=== PATIENT | female | born 1985 | race Two or more races ===

== ENCOUNTER 2020-11-12 17:28 | Outpatient (CLI) | payer BC ==
[~2020-11-12] VITALS: Ht 170.2 cm; Wt 179.2 kg
== END 2020-11-12 20:32 | disposition home or self-care (01) ==
LOC: LDOP 17:28
PROVIDERS: ATTEND Obstetrics & Gynecology Maternal & Fetal Medicine
DX: O26.893 Other specified pregnancy related conditions, third trimester (principal); E66.01 Morbid (severe) obesity due to excess calories; I10 Essential (primary) hypertension; Z3A.33 33 weeks gestation of pregnancy
CPT/HCPCS: 59025

== ENCOUNTER 2020-11-29 14:00 | Outpatient (CLI) | payer BC ==
[~2020-11-29] VITALS: Ht 170.2 cm; Wt 179.5 kg
[2020-11-29 14:39] VITALS: BP 139/67
[2020-11-29] MEDS ORDERED: PREN1TAB10 PO (16:04)
[2020-11-29] MEDS ORDERED: LABE200T6 PO (16:04)
[2020-11-29] MEDS ORDERED: ASPI-963 PO (16:04)
== END 2020-11-29 16:20 | disposition home or self-care (01) ==
LOC: LDOP 14:00
PROVIDERS: ATTEND Obstetrics & Gynecology Maternal & Fetal Medicine
DX: O36.8130 Decreased fetal movements, third trimester, not applicable or unspecified (principal); Z3A.35 35 weeks gestation of pregnancy
CPT/HCPCS: 59025; 76819

== ENCOUNTER 2020-12-18 09:58 | Inpatient (IN) | payer BC ==
[~2020-12-18] VITALS: Ht 170.2 cm; Wt 176.0 kg
[~2020-12-18 09:58] MED LIST: ASPI-963 PO; LABE200T6 PO; PREN1TAB10 PO
[2020-12-18] MEDS ORDERED: TERBUTALINE 1 MG/ML, 1ML IVPush PRN (17:30)
[2020-12-18] MEDS ORDERED: METOCLOPRAMIDE 5 MG/ML, 2ML IVPush PRN (17:30)
[2020-12-18] MEDS ORDERED: OXYTOCIN 30U/ 0.9% NaCL 500ML 500 ML IV ONE (17:30)
[2020-12-18] MEDS ORDERED: FENTANYL PF 100 MCG/2ML IVPush PRN (17:30)
[2020-12-18] MEDS ORDERED: ALUMINUM/MAG/SIMETHICONE 30 ML UDC PO PRN (17:30)
[2020-12-18] MEDS ORDERED: CALCIUM CARBONATE 500 MG TAB.CHEW PO PRN (17:30)
[2020-12-18] MEDS ORDERED: PLEASE ENTER HEIGHT AND WEIGHT MC SCH ×2 (17:30→18:30)
[2020-12-18] MEDS ORDERED: TERBUTALINE 1 MG/ML, 1ML SQ PRN (17:30)
[2020-12-18] MEDS ORDERED: ONDANSETRON 2MG/ML, 2ML IVPush PRN (17:30)
[2020-12-18] MEDS ORDERED: FENTANYL PF 100 MCG/2ML IV PRN (17:30)
[2020-12-18] MEDS ORDERED: D5%-LACTATED RINGERS 1,000 ML IV SCH (17:30)
[2020-12-18] MEDS ORDERED: LACTATED RINGERS 1,000 ML IV SCH (17:30)
[2020-12-18] MEDS ORDERED: SODIUM CITRATE/CITRIC ACID 30 ML UDC PO PRN (17:30)
[2020-12-18] MEDS ORDERED: SODIUM CHLORIDE FLUSH 10ML SYR IVF PRN (17:30)
[2020-12-18] MEDS ORDERED: MISOPROSTOL 25 MCG TABLET VG PRN (17:30)
[2020-12-18] MEDS ORDERED: OXYTOCIN 30U/ 0.9% NaCL 500ML 500 ML IV PRN (17:30)
[2020-12-18 17:32] LABS: BASOPHILS % (AUTO) 1 % (0-1); EOSINOPHILS % (AUTO) 1 % (1-7); LYMPHOCYTES % (AUTO) 18 % (22-44); MEAN CORPUSCULAR HEMOGLOBIN 29.4 pg (27.0-34.8); MEAN CORPUSCULAR HGB CONC 33.9 g/dL (32.4-35.8); MEAN PLATELET VOLUME 10.1 fL (7.4-10.4); MONOCYTES % (AUTO) 4 % (2-9); NEUTROPHILS % (AUTO) 76 % (42-75); PLATELET COUNT 268 x10^3/uL (130-400); RED BLOOD COUNT 4.06 x10^6/uL (3.82-5.3); RED CELL DISTRIBUTION WIDTH 14.3 % (9.6-15.2)
[2020-12-18] MEDS ORDERED: LIDOCAINE 1%, 20ML ONE (18:14)
[2020-12-18] MEDS ORDERED: MISOPROSTOL 200 MCG TABLET ONE (18:14)
[2020-12-18] MEDS ORDERED: NEWBORN KIT ONE (18:14)
[2020-12-18 19:30] VITALS: BP 141/76
[2020-12-18] MEDS: LABETALOL 200 MG TABLET HOMEMEDPO SCH (20:00)
[2020-12-19] MEDS: LABETALOL 200 MG TABLET HOMEMEDPO SCH (07:30)
[2020-12-19] MEDS ORDERED: hydrALAzine 20 MG/ML, 1ML ONE ×2 (07:49→21:35)
[2020-12-19] MEDS ORDERED: hydrALAzine 20 MG/ML, 1ML IV ONE (08:00)
[2020-12-19] MEDS ORDERED: LABETALOL 5MG/ML, 20ML IVPush ONE (09:00)
[2020-12-19] MEDS ORDERED: hydrALAzine 20 MG/ML, 1ML IVPush ONE ×3 (09:00→22:00)
[2020-12-19] MEDS ORDERED: FENTANYL/BUPIV./NS/PF 250 ML EPIDCONT ONE (10:43)
[2020-12-19] MEDS ORDERED: BUPIVACAINE 0.25% ONE (10:43)
[2020-12-19] MEDS ORDERED: FENTANYL/BUPIV./NS/PF 250 ML EPIDCONT SCH (11:30)
[2020-12-19] MEDS ORDERED: NALOXONE 0.4 MG/ML, 1ML IVPush PRN (11:30)
[2020-12-19] MEDS ORDERED: ONDANSETRON 2MG/ML, 2ML IVPush PRN (11:30)
[2020-12-19] MEDS ORDERED: DIPHENHYDRAMINE 50 MG/ML, 1ML IVPush PRN (11:30)
[2020-12-19] MEDS ORDERED: LACTATED RINGERS 1,000 ML IV SCH (11:30)
[2020-12-19] MEDS ORDERED: EPHEDRINE 50 MG/ML, 1ML IVPush PRN (11:30)
[2020-12-19] MEDS ORDERED: LACTATED RINGERS 1,000 ML IVBOLUS PRN (11:30)
[2020-12-19] MEDS ORDERED: AMPICILLIN 1 GM in SODIUM CHLORIDE 0.9% 100 ML IV ONE (23:00)
[2020-12-19] MEDS ORDERED: PHARMACOKINETIC MONITORING MC PRN (23:00)
[2020-12-19] MEDS ORDERED: GENTAMICIN IV ONE (23:00)
[2020-12-19] MEDS ORDERED: PHARMACOKINETIC CONSULTATION MC ONE (23:00)
[2020-12-19] MEDS ORDERED: SODIUM CHLORIDE 0.9% IV ONE (23:00)
[2020-12-19] MEDS ORDERED: AMPICILLIN 2 GM in SODIUM CHLORIDE 0.9% 100 ML IV ONE (23:00)
[2020-12-19] MEDS ORDERED: GENTAMICIN PER PHARMACY MC PRN (23:00)
[2020-12-19] MEDS ORDERED: LABETALOL 5MG/ML, 20ML ONE (23:09)
[2020-12-19] MEDS ORDERED: SODIUM CITRATE/CITRIC ACID 15 ML UDC ONE (23:09)
[2020-12-19] MEDS ORDERED: LABETALOL 5MG/ML, 20ML IVPush PRN ×2 (23:30)
[2020-12-19] MEDS ORDERED: FENTANYL PF 100 MCG/2ML ONE (23:59)
[2020-12-20 00:12] LABS: CREATININE 0.65 mg/dL (0.55-1.02)
[2020-12-20] MEDS ORDERED: OXYTOCIN 10 UNITS/ML, 1ML ONE ×4 (00:16)
[2020-12-20] MEDS ORDERED: CEFAZOLIN 1,000 MG ONE ×3 (00:16)
[2020-12-20] MEDS ORDERED: KETOROLAC 30 MG/1 ML ONE (00:46)
[2020-12-20] MEDS ORDERED: MIDAZOLAM 1 MG/ML, 2ML ONE (00:47)
[2020-12-20] MEDS ORDERED: OXYcodone 5 MG/5 ML ORAL.SOL UDC PO PRN (01:30)
[2020-12-20] MEDS ORDERED: morphine SULFATE 10 MG/ML, 1ML IM PRN (01:30)
[2020-12-20] MEDS ORDERED: MISOPROSTOL 200 MCG TABLET PR PRN (01:30)
[2020-12-20] MEDS ORDERED: LABETALOL 5MG/ML, 20ML IV PRN (01:30)
[2020-12-20] MEDS ORDERED: ACETAMINOPHEN 325 MG TABLET PO PRN ×3 (01:30)
[2020-12-20] MEDS ORDERED: DIPHENHYDRAMINE 50 MG/ML, 1ML IVPush PRN (01:30)
[2020-12-20] MEDS: OXYTOCIN 30U/ 0.9% NaCL 500ML 500 ML IV SCH ×2 (01:30→11:30)
[2020-12-20] MEDS ORDERED: FENTANYL PF 100 MCG/2ML IV PRN (01:30)
[2020-12-20] MEDS ORDERED: CARBOPROST TROMETHAMINE 250 MCG/ML, 1ML IM PRN (01:30)
[2020-12-20] MEDS ORDERED: MEPERIDINE/PF 25MG/0.5ML IVPush PRN (01:30)
[2020-12-20] MEDS ORDERED: ONDANSETRON 2MG/ML, 2ML IVPush PRN (01:30)
[2020-12-20] MEDS ORDERED: SIMETHICONE 80 MG CHEW TAB PO PRN (01:30)
[2020-12-20] MEDS ORDERED: EPHEDRINE 50 MG/ML, 1ML IVPush PRN (01:30)
[2020-12-20] MEDS ORDERED: morphine SULFATE 10 MG/ML, 1ML IVPush PRN (01:30)
[2020-12-20] MEDS ORDERED: ONDANSETRON 2MG/ML, 2ML IV PRN (01:30)
[2020-12-20] MEDS ORDERED: DIPH,PERTUSS(ACELL),TET VAC/PF NC IM-VACC PRN (01:30)
[2020-12-20] MEDS ORDERED: LACTATED RINGERS 1,000 ML IV SCH (01:30)
[2020-12-20] MEDS: LACTATED RINGERS 1,000 ML IV SCH ×3 (04:00→12:41)
[2020-12-20] MEDS: OXYcodone/APAP 5/325MG TABLET PO PRN ×4 (04:15→18:23)
[2020-12-20] MEDS: ASPIRIN 81 MG TABLET EC HOMEMEDPO SCH ×2 (06:00→20:00)
[2020-12-20 07:30] VITALS: BP 148/76
[2020-12-20] MEDS: KETOROLAC 30 MG/1 ML IV SCH ×4 (07:30→20:37)
[2020-12-20] MEDS: PRENATAL VIT/IRON/FA 1 EACH TABLET HOMEMEDPO SCH ×2 (07:55→09:00)
[2020-12-20] MEDS ORDERED: GENTAMICIN 160 MG in SODIUM CHLORIDE 0.9% 50 ML IV SCH (08:00)
[2020-12-20 08:50] LABS: MEAN CORPUSCULAR HEMOGLOBIN 29.3 pg (27.0-34.8); MEAN CORPUSCULAR HGB CONC 33.7 g/dL (32.4-35.8); MEAN PLATELET VOLUME 10.2 fL (7.4-10.4); PLATELET COUNT 197 x10^3/uL (130-400); RED CELL DISTRIBUTION WIDTH 14.2 % (9.6-15.2)
[2020-12-20] MEDS: PRENATAL VIT/IRON/FA 1 EACH TABLET PO SCH (09:00)
[2020-12-20] MEDS: LABETALOL 100 MG TABLET PO SCH ×2 (09:19→18:22)
[2020-12-20] MEDS: DOCUSATE 100 MG CAPSULE PO PRN ×2 (09:19→20:37)
[2020-12-20 09:52] LABS: <PLATELET ESTIMATE> ADEQUATE; <PLT MORPHOLOGY> NORMAL PLT MORPH; ANISOCYTOSIS 1+; BAND#(MANUAL) 2.67 x10^3/uL; BANDS%(MANUAL) 11 % (0-7); LYMPH#(MANUAL) 2.92 x10^3/uL (1-3.4); LYMPHS% (MANUAL) 12 % (22-44); MONOS#(MANUAL) 0.49 x10^3/uL (0.3-2.7); MONOS% (MANUAL) 2 % (2-9); POLYCHROMASIA 1+; SEG#(MANUAL) 18.23 x10^3/uL (1.8-6.8); SEGS% (MANUAL) 75 % (42-75)
[2020-12-20 12:00] VITALS: BP 125/68
[2020-12-20 16:45] VITALS: BP 107/71
[2020-12-20 20:00] VITALS: BP 131/79
[2020-12-21 00:15] VITALS: BP 146/81
[2020-12-21] MEDS: KETOROLAC 30 MG/1 ML IV SCH ×4 (02:36→21:12)
[2020-12-21] MEDS: OXYcodone/APAP 5/325MG TABLET PO PRN ×4 (02:37→21:41)
[2020-12-21 04:00] VITALS: BP 145/85
[2020-12-21] MEDS: ASPIRIN 81 MG TABLET EC HOMEMEDPO SCH ×2 (05:46→07:00)
[2020-12-21] MEDS: LACTATED RINGERS 1,000 ML IV SCH ×2 (07:30→17:30)
[2020-12-21] MEDS: LABETALOL 100 MG TABLET PO SCH ×2 (08:18→18:16)
[2020-12-21] MEDS: DOCUSATE 100 MG CAPSULE PO PRN ×2 (08:18→21:12)
[2020-12-21] MEDS: PRENATAL VIT/IRON/FA 1 EACH TABLET HOMEMEDPO SCH (08:18)
[2020-12-21 08:30] VITALS: BP 143/77
[2020-12-22] MEDS: LACTATED RINGERS 1,000 ML IV SCH ×2 (03:30→13:30)
[2020-12-22] MEDS: IBUPROFEN 600 MG TABLET PO PRN ×2 (05:08→11:22)
[2020-12-22] MEDS: OXYcodone/APAP 5/325MG TABLET PO PRN ×3 (05:10→17:19)
[2020-12-22] MEDS: ASPIRIN 81 MG TABLET EC HOMEMEDPO SCH (06:00)
[2020-12-22] MEDS: LABETALOL 100 MG TABLET PO SCH (07:16)
[2020-12-22] MEDS: PRENATAL VIT/IRON/FA 1 EACH TABLET PO SCH ×2 (07:16→09:00)
[2020-12-22] MEDS: DOCUSATE 100 MG CAPSULE PO PRN (07:17)
[2020-12-22 07:30] VITALS: BP 174/100
[2020-12-22] MEDS: PRENATAL VIT/IRON/FA 1 EACH TABLET HOMEMEDPO SCH (07:37)
[2020-12-22 09:00] VITALS: BP_SYST 147; BP_SYST 162; BP_DIAS 81; BP_DIAS 95
[2020-12-22] MEDS ORDERED: LABETALOL 200 MG TABLET PO ONE (09:00)
[2020-12-22 12:15] VITALS: BP 177/109
[2020-12-22 12:44] LABS: BASOPHILS % (AUTO) 1 % (0-1); EOSINOPHILS % (AUTO) 1 % (1-7); LYMPHOCYTES % (AUTO) 18 % (22-44); MEAN CORPUSCULAR HEMOGLOBIN 29.6 pg (27.0-34.8); MEAN PLATELET VOLUME 10.1 fL (7.4-10.4); MONOCYTES % (AUTO) 4 % (2-9); NEUTROPHILS % (AUTO) 77 % (42-75); PLATELET COUNT 220 x10^3/uL (130-400); RED BLOOD COUNT 3.32 x10^6/uL (3.82-5.3); RED CELL DISTRIBUTION WIDTH 14.8 % (9.6-15.2)
[2020-12-22 12:49] LABS: ALANINE AMINOTRANSFERASE 30 U/L (12-78); ALBUMIN 2.3 g/dL (3.4-5.0); ANION GAP 8 mmol/L (5-15); CALCIUM 8.6 mg/dL (8.5-10.1); CHLORIDE 112 mmol/L (98-107); CREATININE 0.61 mg/dL (0.55-1.02)
[2020-12-22 12:52] LABS: ALKALINE PHOSPHATASE 73 U/L (45-117); BILIRUBIN,TOTAL 0.3 mg/dL (0.2-1.0); TOTAL PROTEIN 6.4 g/dL (6.4-8.2)
[2020-12-22 13:09] LABS: BILIRUBIN, DIRECT < 0.1 mg/dL (0.1-0.2)
[2020-12-22 13:28] VITALS: BP 167/84
[2020-12-22 16:20] VITALS: BP 184/94
[2020-12-22] MEDS: LABETALOL 300 MG TABLET PO SCH (16:30)
[2020-12-22] MEDS ORDERED: MAGNESIUM SULFATE PMX 4GM/100M 100 ML IVPB ONE (17:00)
[2020-12-22] MEDS: LACTATED RINGERS 1,000 ML IV PRN (17:10)
[2020-12-22] MEDS: MAGNESIUM SULF. PMX 20GM/500ML 500 ML IV SCH ×2 (17:25→17:50)
[2020-12-22] MEDS ORDERED: hydrALAzine 20 MG/ML, 1ML IVPush ONE ×3 (22:00)
[2020-12-22] MEDS ORDERED: LABETALOL 5MG/ML, 20ML IVPush ONE (22:00)
[2020-12-22] MEDS ORDERED: hydrALAzine 20 MG/ML, 1ML ONE (22:04)
[2020-12-23 00:27] LABS: BASOPHILS % (AUTO) 1 % (0-1); EOSINOPHILS % (AUTO) 1 % (1-7); LYMPHOCYTES % (AUTO) 16 % (22-44); MEAN CORPUSCULAR HEMOGLOBIN 29.4 pg (27.0-34.8); MEAN CORPUSCULAR HGB CONC 33.6 g/dL (32.4-35.8); MEAN PLATELET VOLUME 9.6 fL (7.4-10.4); MONOCYTES % (AUTO) 4 % (2-9); NEUTROPHILS % (AUTO) 78 % (42-75); PLATELET COUNT 282 x10^3/uL (130-400); RED BLOOD COUNT 3.73 x10^6/uL (3.82-5.3); RED CELL DISTRIBUTION WIDTH 14.5 % (9.6-15.2)
[2020-12-23 00:54] LABS: ALBUMIN 2.4 g/dL (3.4-5.0); ANION GAP 7 mmol/L (5-15); CALCIUM 8.5 mg/dL (8.5-10.1); CHLORIDE 112 mmol/L (98-107)
[2020-12-23 00:59] LABS: ALANINE AMINOTRANSFERASE 35 U/L (12-78); ALKALINE PHOSPHATASE 80 U/L (45-117); BILIRUBIN,TOTAL 0.3 mg/dL (0.2-1.0); CREATININE 0.62 mg/dL (0.55-1.02)
[2020-12-23 01:12] LABS: BILIRUBIN, DIRECT < 0.1 mg/dL (0.1-0.2)
[2020-12-23] MEDS: MAGNESIUM SULF. PMX 20GM/500ML 500 ML IV SCH ×3 (02:14→19:32)
[2020-12-23] MEDS ORDERED: LABETALOL 5MG/ML, 20ML IVPush PRN ×3 (03:30)
[2020-12-23] MEDS ORDERED: hydrALAzine 20 MG/ML, 1ML IVPush ONE (03:30)
[2020-12-23] MEDS: LABETALOL 300 MG TABLET PO SCH (05:13)
[2020-12-23] MEDS: LACTATED RINGERS 1,000 ML IV PRN (06:18)
[2020-12-23] MEDS ORDERED: LABETALOL 5MG/ML, 20ML IVPush ONE (07:00)
[2020-12-23] MEDS ORDERED: niFEDipine ER 30 MG TABLET.ER PO SCH (08:00)
[2020-12-23 08:29] LABS: BASOPHILS % (AUTO) 0 % (0-1); EOSINOPHILS % (AUTO) 1 % (1-7); LYMPHOCYTES % (AUTO) 14 % (22-44); MEAN CORPUSCULAR HEMOGLOBIN 29.7 pg (27.0-34.8); MEAN CORPUSCULAR HGB CONC 33.7 g/dL (32.4-35.8); MEAN PLATELET VOLUME 9.3 fL (7.4-10.4); MONOCYTES % (AUTO) 5 % (2-9); NEUTROPHILS % (AUTO) 80 % (42-75); PLATELET COUNT 291 x10^3/uL (130-400); RED BLOOD COUNT 3.51 x10^6/uL (3.82-5.3); RED CELL DISTRIBUTION WIDTH 14.5 % (9.6-15.2)
[2020-12-23 08:41] LABS: ALANINE AMINOTRANSFERASE 30 U/L (12-78); ALBUMIN 2.2 g/dL (3.4-5.0); ANION GAP 7 mmol/L (5-15); CHLORIDE 110 mmol/L (98-107); CREATININE 0.54 mg/dL (0.55-1.02)
[2020-12-23 08:43] LABS: ALKALINE PHOSPHATASE 74 U/L (45-117); BILIRUBIN,TOTAL 0.3 mg/dL (0.2-1.0); TOTAL PROTEIN 6.5 g/dL (6.4-8.2)
[2020-12-23 09:40] VITALS: BP 146/83
[2020-12-23] MEDS ORDERED: DOXAZOSIN 1MG TABLET PO SCH (14:30)
[2020-12-23] MEDS ORDERED: hydrALAzine 20 MG/ML, 1ML IV PRN (17:30)
[2020-12-23] MEDS ORDERED: ENALAPRILAT 1.25 MG/ML, 2ML IV PRN (17:30)
[2020-12-23] MEDS ORDERED: OXYcodone/APAP 5/325MG TABLET PO PRN (18:00)
[2020-12-23] MEDS ORDERED: ONDANSETRON 2MG/ML, 2ML IVPush PRN (18:00)
[2020-12-23] MEDS ORDERED: ACETAMINOPHEN 325 MG TABLET PO PRN (18:00)
[2020-12-23] MEDS ORDERED: LABETALOL 300 MG TABLET PO SCH (18:00)
[2020-12-23] MEDS: LISINOPRIL 20 MG TABLET PO SCH (21:00)
[2020-12-24 04:31] LABS: BASOPHILS % (AUTO) 1 % (0-1); EOSINOPHILS % (AUTO) 1 % (1-7); LYMPHOCYTES % (AUTO) 19 % (22-44); MEAN CORPUSCULAR HEMOGLOBIN 29.8 pg (27.0-34.8); MEAN CORPUSCULAR HGB CONC 34.2 g/dL (32.4-35.8); MEAN PLATELET VOLUME 8.9 fL (7.4-10.4); MONOCYTES % (AUTO) 6 % (2-9); NEUTROPHILS % (AUTO) 74 % (42-75); PLATELET COUNT 340 x10^3/uL (130-400); RED BLOOD COUNT 3.73 x10^6/uL (3.82-5.3); RED CELL DISTRIBUTION WIDTH 14.6 % (9.6-15.2)
[2020-12-24 04:44] LABS: ALANINE AMINOTRANSFERASE 26 U/L (12-78); ALBUMIN 2.3 g/dL (3.4-5.0); ANION GAP 7 mmol/L (5-15); CALCIUM 7.6 mg/dL (8.5-10.1); CHLORIDE 108 mmol/L (98-107); CREATININE 0.56 mg/dL (0.55-1.02)
[2020-12-24 04:46] LABS: ALKALINE PHOSPHATASE 73 U/L (45-117); BILIRUBIN,TOTAL 0.4 mg/dL (0.2-1.0); TOTAL PROTEIN 6.4 g/dL (6.4-8.2)
[2020-12-24] MEDS: ASPIRIN 81 MG TABLET EC HOMEMEDPO SCH (06:09)
[2020-12-24] MEDS: LISINOPRIL 20 MG TABLET PO SCH (06:58)
[2020-12-24] MEDS ORDERED: LABETALOL 200 MG TABLET PO SCH (08:00)
[2020-12-24] MEDS: DILTIAZEM 30 MG TABLET PO SCH ×3 (10:30→21:22)
[2020-12-24] MEDS: LABETALOL 200 MG TABLET PO SCH ×2 (15:24→21:22)
[2020-12-25] MEDS: ASPIRIN 81 MG TABLET EC HOMEMEDPO SCH (05:34)
[2020-12-25] MEDS: LABETALOL 200 MG TABLET PO SCH ×3 (07:18→20:15)
[2020-12-25] MEDS: DILTIAZEM 60 MG TABLET PO SCH ×3 (07:18→20:15)
[2020-12-25] MEDS: LISINOPRIL 20 MG TABLET PO SCH ×2 (09:23→20:15)
[2020-12-25] MEDS ORDERED: ENOXAPARIN 40 MG/0.4 ML SQ SCH (12:00)
[2020-12-25] MEDS: ENOXAPARIN 30 MG/0.3 ML SQ SCH (22:04)
[2020-12-26 04:36] LABS: BASOPHILS % (AUTO) 1 % (0-1); EOSINOPHILS % (AUTO) 1 % (1-7); LYMPHOCYTES % (AUTO) 20 % (22-44); MEAN CORPUSCULAR HEMOGLOBIN 29.5 pg (27.0-34.8); MEAN CORPUSCULAR HGB CONC 33.4 g/dL (32.4-35.8); MEAN PLATELET VOLUME 8.6 fL (7.4-10.4); MONOCYTES % (AUTO) 7 % (2-9); NEUTROPHILS % (AUTO) 72 % (42-75); PLATELET COUNT 314 x10^3/uL (130-400); RED BLOOD COUNT 3.79 x10^6/uL (3.82-5.3); RED CELL DISTRIBUTION WIDTH 14.2 % (9.6-15.2)
[2020-12-26 04:47] LABS: ALBUMIN 2.5 g/dL (3.4-5.0); ANION GAP 7 mmol/L (5-15); CALCIUM 8.3 mg/dL (8.5-10.1); CHLORIDE 109 mmol/L (98-107)
[2020-12-26 04:50] LABS: ALANINE AMINOTRANSFERASE 23 U/L (12-78); ALKALINE PHOSPHATASE 72 U/L (45-117); BILIRUBIN,TOTAL 0.3 mg/dL (0.2-1.0); CREATININE 0.54 mg/dL (0.55-1.02); TOTAL PROTEIN 6.4 g/dL (6.4-8.2)
[2020-12-26] MEDS: ASPIRIN 81 MG TABLET EC HOMEMEDPO SCH (05:58)
[2020-12-26] MEDS: LABETALOL 200 MG TABLET PO SCH ×2 (07:59→15:41)
[2020-12-26] MEDS: DILTIAZEM 60 MG TABLET PO SCH ×2 (07:59→16:00)
[2020-12-26] MEDS: LISINOPRIL 20 MG TABLET PO SCH ×2 (08:00→20:51)
[2020-12-26] MEDS: ENOXAPARIN 30 MG/0.3 ML SQ SCH ×2 (08:00→20:52)
[2020-12-26] MEDS ORDERED: ENALAPRILAT 1.25 MG/ML, 2ML IV PRN (10:30)
[2020-12-26] MEDS: DILTIAZEM 240 MG CAP.ER.24H PO SCH (18:36)
[2020-12-26 20:48] VITALS: BP_SYST 137; BP_SYST 182; BP_DIAS 82; BP_DIAS 83
[2020-12-27] VITALS (10 sets, daily range): BP systolic 146–190; BP diastolic 82–102
[2020-12-27] MEDS: LABETALOL 200 MG TABLET PO SCH ×5 (00:18→21:11)
[2020-12-27] MEDS: ASPIRIN 81 MG TABLET EC HOMEMEDPO SCH (06:00)
[2020-12-27] MEDS: DILTIAZEM 240 MG CAP.ER.24H PO SCH (06:24)
[2020-12-27] MEDS: LISINOPRIL 40 MG TABLET PO SCH ×2 (09:05→21:11)
[2020-12-27] MEDS: ENOXAPARIN 30 MG/0.3 ML SQ SCH ×2 (09:05→21:11)
[2020-12-27] MEDS: AMLODIPINE 5 MG TABLET PO SCH (21:11)
[2020-12-28] VITALS (8 sets, daily range): BP systolic 156–187; BP diastolic 84–102
[2020-12-28 06:13] LABS: ANION GAP 11 mmol/L (5-15); CALCIUM 8.8 mg/dL (8.5-10.1); CHLORIDE 109 mmol/L (98-107); CREATININE 0.57 mg/dL (0.55-1.02)
[2020-12-28] MEDS: ASPIRIN 81 MG TABLET EC HOMEMEDPO SCH (06:20)
[2020-12-28] MEDS: LABETALOL 200 MG TABLET PO SCH ×4 (06:20→20:01)
[2020-12-28] MEDS ORDERED: HYDROCHLOROTHIAZIDE 25 MG TABLET PO SCH (09:00)
[2020-12-28] MEDS: ENOXAPARIN 30 MG/0.3 ML SQ SCH ×2 (10:03→20:01)
[2020-12-28] MEDS: AMLODIPINE 5 MG TABLET PO SCH ×2 (10:05→20:00)
[2020-12-28] MEDS: LISINOPRIL 40 MG TABLET PO SCH ×2 (10:05→20:01)
[2020-12-28] MEDS ORDERED: LISI20TA21 PO (18:33)
[2020-12-28] MEDS ORDERED: HYDR25TA6 PO (18:35)
[2020-12-28] MEDS ORDERED: AMLO-210 PO (18:35)
[2020-12-28] MEDS ORDERED: HYDR100T25 PO (18:36)
== END 2020-12-28 20:30 | disposition home or self-care (01) | DRG 787 ==
LOC: LDIP 17:06 → 2NW 12-20 06:08 → LDIP 12-22 17:02 → CCU 12-23 16:48 → 2NW 12-26 12:38 → 5SO 12-27 16:31 → 2NW 12-27 16:33 → 5SO 12-27 17:12
PROVIDERS: ADMIT Obstetrics & Gynecology Maternal & Fetal Medicine; ATTEND Obstetrics & Gynecology Maternal & Fetal Medicine
PROC: 10D00Z1 Extraction of Products of Conception, Low, Open Approach (ICD-10-PCS; principal; 2020-12-19)
DX: O11.4 Pre-existing hypertension with pre-eclampsia, complicating childbirth (principal); O99.12 Other diseases of the blood and blood-forming organs and certain disorders involving the immune mechanism complicating childbirth; O99.214 Obesity complicating childbirth; Z3A.38 38 weeks gestation of pregnancy; Z37.0 Single live birth; E66.01 Morbid (severe) obesity due to excess calories; Z23 Encounter for immunization; D72.829 Elevated white blood cell count, unspecified; I15.9 Secondary hypertension, unspecified; O25.2 Malnutrition in childbirth; O62.0 Primary inadequate contractions; O63.0 Prolonged first stage (of labor); O76 Abnormality in fetal heart rate and rhythm complicating labor and delivery; O99.02 Anemia complicating childbirth; D64.9 Anemia, unspecified
CPT/HCPCS: 36415; J7121; 80048; 80053; 82248; 82565; 83735; 84550; 85025; 86592; 86850; 86900; 87081; 93306; 93975; G0378; J0290; J0690; J1650; J1885; J2250; J2405; J3010; J0360; J2590; J2765; J3105; J3475; J7050; J7120